=== PATIENT | male | born 1940 | race Caucasian/White ===

== ENCOUNTER 2024-07-03 11:25 | Emergency (ER) | payer MEDICARE, BC ==
[~2024-07-03] VITALS: Ht 172.7 cm; Wt 63.5 kg
[2024-07-03 12:17] LABS: BASOPHILS % (AUTO) 0.6 % (0.0-2.0); EOSINOPHILS # (AUTO) 0.4 K/uL (0.0-0.7); EOSINOPHILS % (AUTO) 6.1 % (0.0-7.0); HEMOGLOBIN 11.3 g/dL (12.5-16.3); LYMPHOCYTES # (AUTO) 0.7 K/uL (0.8-4.8); LYMPHOCYTES % (AUTO) 11.3 % (20.5-51.5); MEAN CORPUSCULAR HEMOGLOBIN 31.8 uug (23.8-33.4); MEAN CORPUSCULAR HGB CONC 33 g/dL (32.5-36.3); MEAN CORPUSCULAR VOLUME 96.2 fL (73.0-96.2); MONOCYTES # (AUTO) 0.6 K/uL (0.1-1.30); MONOCYTES % (AUTO) 9.7 % (0.0-11.0); NEUTROPHILS # (AUTO) 4.2 K/uL (1.8-8.9); NEUTROPHILS % (AUTO) 72.3 % (38.5-71.5); PLATELET COUNT (AUTO) 75 K/uL (152-348); RED BLOOD CELL COUNT(AUTO) 3.54 MIL/uL (4.06-5.63); RED CELL DISTRIBUTION WIDTH 15.8 % (12.1-16.2); WHITE BLOOD COUNT (AUTO) 5.9 K/uL (3.6-10.2)
[2024-07-03] MEDS ORDERED: CARV3.122 PO (12:29)
[2024-07-03] MEDS ORDERED: UBID200C32 PO (12:29)
[2024-07-03] MEDS ORDERED: FLUD0.1T PO (12:29)
[2024-07-03] MEDS ORDERED: ALLO100T PO (12:29)
[2024-07-03] MEDS ORDERED: DEXL60CA3 PO (12:29)
[2024-07-03] MEDS ORDERED: FOLI0.8T23 PO (12:29)
[2024-07-03] MEDS ORDERED: PRED1TAB PO (12:29)
[2024-07-03] MEDS ORDERED: FAMO20TA8 PO (12:29)
[2024-07-03] MEDS ORDERED: CALC667T6 PO (12:29)
[2024-07-03] MEDS ORDERED: EVOL140P3 SQ (12:29)
[2024-07-03 13:02] LABS: DIFFERENTIAL COMMENT 1
[2024-07-03] MEDS: IV NORMAL SALINE 1000 ML BAG IV ONE (13:19)
[2024-07-03 13:54] LABS: CALCIUM 9.3 mg/dL (8.5-10.1); CARBON DIOXIDE 32 mmol/L (21-32); CHLORIDE 107 mmol/L (98-107); CREATININE 4.4 mg/dL (0.6-1.3); GLUCOSE 104 mg/dL (74-106); POTASSIUM 4.1 mmol/L (3.5-5.1); SODIUM SERUM 144 mmol/L (136-145); UREA NITROGEN, BLOOD 24 mg/dL (7-18)
[2024-07-03 14:07] LABS: ALANINE AMINOTRANSFERASE 15 U/L (16-63); ALBUMIN 2.6 g/dL (3.4-5.0); ALKALINE PHOSPHATASE 145 U/L (50-136); ASPARTATE AMINOTRANSFERASE 23 U/L (15-37); BILIRUBIN,DIRECT 0.2 mg/dL (0.0-0.2); BILIRUBIN,TOTAL 0.6 mg/dL (0.2-1.0); NT-PRO BNP 228538 pg/mL (0-125); TOTAL PROTEIN, SERUM 5.5 g/dL (6.4-8.2)
[2024-07-03 14:39] VITALS: BP 164/78; O2SAT 94
== END 2024-07-03 14:25 | disposition home or self-care (01) ==
LOC: ER 11:25
DX: R55 Syncope and collapse (principal); N18.6 End stage renal disease; R06.00 Dyspnea, unspecified; Z79.52 Long term (current) use of systemic steroids; Z87.442 Personal history of urinary calculi; Z79.899 Other long term (current) drug therapy; Z92.3 Personal history of irradiation; Z99.2 Dependence on renal dialysis; Z88.7 Allergy status to serum and vaccine; Z88.8 Allergy status to other drugs, medicaments and biological substances
CPT/HCPCS: 99291; 96360; 80076; 80048; 83880; 85025; 85730; 86850; 86900; 86901; 87040 ×2; 84484; 36415; 71045; 93005; 83605; J7040; A4606; A4663